=== PATIENT | male | born 1995 ===

== ENCOUNTER 2019-07-11 12:56 | Emergency (ER) | payer OTHER ==
[~2019-07-11] VITALS: Ht 172.7 cm; Wt 54.4 kg
== END 2019-07-11 19:03 | disposition home or self-care (01) ==
LOC: ER 12:56
DX: J32.8 Other chronic sinusitis (principal)

== ENCOUNTER 2021-04-07 16:04 | Emergency (ER) | payer OTHER ==
[~2021-04-07] VITALS: Ht 172.7 cm; Wt 56.7 kg
[2021-04-07] MEDS ORDERED: ADVIL (16:19)
== END 2021-04-07 17:52 | disposition home or self-care (01) ==
LOC: ER 16:04
DX: S60.222A Contusion of left hand, initial encounter (principal); W18.39XA Other fall on same level, initial encounter; Y93.89 Activity, other specified; Y92.89 Other specified places as the place of occurrence of the external cause; Y99.8 Other external cause status

== ENCOUNTER 2021-06-17 14:06 | Emergency (ER) | payer OTHER ==
[~2021-06-17] VITALS: Ht 172.7 cm; Wt 59.0 kg
[~2021-06-17 14:06] MED LIST: ADVIL
[2021-06-17] MEDS ORDERED: ORPHENADRINE C100 MG PO (16:35)
[2021-06-17] MEDS ORDERED: DICLOFENAC POTA50 MG PO (16:35)
== END 2021-06-17 16:39 ==
LOC: ER 14:06
DX: S23.3XXA Sprain of ligaments of thoracic spine, initial encounter (principal); V43.62XA Car passenger injured in collision with other type car in traffic accident, initial encounter; Y92.410 Unspecified street and highway as the place of occurrence of the external cause